=== PATIENT | female | born 1950 | race Caucasian/White ===

== ENCOUNTER → 2018-01-25 11:23 | Outpatient (CLI) | payer MEDICARE, OTHER, SELFPAY ==
--- NOTE | 2018-01-25 | DI.MG.S_ITS ---
BILATERAL DIGITAL SCREENING MAMMOGRAM 3D/2D WITH CAD: 01/25/2018 CLINICAL: Routine screening. Family history of breast cancer. Comparison is made to exams dated: 01/15/2017 mammogram, 12/24/2015 mammogram, and 10/09/2014 mammogram - [facility]. The tissue of both breasts is heterogeneously dense. This may lower the sensitivity of mammography. Current study was also evaluated with a Computer Aided Detection (CAD) system. There are benign calcifications in the left breast. There also is a biopsy clip in the left breast. No significant masses, calcifications, or other findings are seen in either breast. There has been no significant interval change. IMPRESSION: BENIGN There is no mammographic evidence of malignancy. A 1 year screening mammogram is recommended. This exam was interpreted at Station ID: [id number]. NOTE: For mammograms, a report in lay terms will be sent to the patient. Approximately 15% of breast malignancies will not be visualized mammographically. In the management of a palpable breast mass, a negative mammogram must not discourage biopsy of a clinically suspicious lesion. Electronically Signed By: Marcus clark/karoline:01/25/2018 13:10:55 letter sent: Normal Exam ACR BI-RADS Category 2: Benign Finding(s) 3342F
== END ==
PROVIDERS: Family Provider Family Medicine; PCP Family Medicine; Visit Provider Family Medicine
DX: Z12.31 Encounter for screening mammogram for malignant neoplasm of breast (principal); Z80.3 Family history of malignant neoplasm of breast
CPT/HCPCS: 77063; 77067

== ENCOUNTER → 2018-06-24 13:12 | Outpatient (CLI) | payer MEDICARE, OTHER, SELFPAY ==
--- NOTE | 2018-06-24 | DI.US.S_ITS ---
PROCEDURE: US THYROID INDICATIONS: OSTEOPENIA THYROID NODULE TECHNIQUE: Real-time scanning was performed of the thyroid gland, with image documentation. COMPARISON: [facility], [place], THYROID, 03/15/2016, 11:07. [facility], [place], THYROID, 10/09/2014, 8:41. FINDINGS: Right: Right thyroid lobe is mildly asymmetrically larger than the left, measuring 1.2 x 1.5 x 4.2 cm and contains 3 separate nodules within the central portion of the thyroid lobe and a fourth nodule at its junction with the isthmus. These measure respectively 1.9 x 1.2 x 0.7 cm at the inferior third of the gland and 7 x 7 x 4 mm at the middle third of the gland. More superiorly in the nodule measures 7 x 7 x 5 mm, and at the isthmus margin the nodule measures 5 x 4 x 3 mm. These have not significantly changed in size. Left: No thyroid nodules. Normal-sized gland at 0.6 x 0.9 x 2.6 cm Isthmus: 3 mm. IMPRESSION: The right thyroid lobe contains 4 separate nodules, as discussed above, the largest of which is located at the lower third of the gland and measures 1.9 x 1.2 x 0.7 cm. Considering slight differences in angulation the size of the 3 nodules have not significantly changed within the central portion of the right thyroid lobe. The isthmus nodule, measuring 3 x 4 x 5 mm, is newly visualized. Dictated by: Carlos Garcia M.D. on 06/24/2018 at 16:18 Approved by: Carlos Garcia M.D. on 06/24/2018 at 16:22
== END ==
PROVIDERS: Family Provider Family Medicine; PCP Family Medicine; Visit Provider Family Medicine
DX: E04.2 Nontoxic multinodular goiter (principal); M81.0 Age-related osteoporosis without current pathological fracture; Z78.0 Asymptomatic menopausal state; Z82.62 Family history of osteoporosis
CPT/HCPCS: 76536; 77080

== ENCOUNTER → 2019-05-20 11:00 | Outpatient (CLI) | payer MEDICARE, OTHER, SELFPAY ==
--- NOTE | 2019-05-20 | DI.MG.S_ITS ---
BILATERAL DIGITAL SCREENING MAMMOGRAM 3D/2D WITH CAD: 05/20/2019 CLINICAL: Routine screening. Family history of breast cancer. Comparison is made to exams dated: 01/25/2018 mammogram, 01/15/2017 mammogram, and 12/24/2015 mammogram - . The tissue of both breasts is heterogeneously dense. This may lower the sensitivity of mammography. Current study was also evaluated with a Computer Aided Detection (CAD) system. There are benign calcifications in the left breast. There also is a biopsy clip in the left breast. No significant masses, calcifications, or other findings are seen in either breast. There has been no significant interval change. IMPRESSION: There is no mammographic evidence of malignancy. A 1 year screening mammogram is recommended. This exam was interpreted at Station ID: [id number]. NOTE: For mammograms, a report in lay terms will be sent to the patient. Approximately 15% of breast malignancies will not be visualized mammographically. In the management of a palpable breast mass, a negative mammogram must not discourage biopsy of a clinically suspicious lesion. Electronically Signed By: Nnamdi virgen/karoline:05/20/2019 14:40:38 letter sent: Normal Exam ACR BI-RADS Category 2: Benign Finding(s) 3342F
== END ==
PROVIDERS: PCP Family Medicine; Visit Provider Family Medicine
DX: Z12.31 Encounter for screening mammogram for malignant neoplasm of breast (principal); Z80.3 Family history of malignant neoplasm of breast
CPT/HCPCS: 77063; 77067

== ENCOUNTER → 2020-01-12 12:47 | Outpatient (CLI) | payer MEDICARE, OTHER, SELFPAY ==
--- NOTE | 2020-01-12 12:49 | DI.US.S_ITS ---
PROCEDURE: US THYROID INDICATIONS: THYROID NODULE,HYPOTHYRIODISM TECHNIQUE: Real-time scanning was performed of the thyroid gland, with image documentation. COMPARISON: [facility], US, US THYROID, 06/24/2018, 14:02. FINDINGS: Right: Thyroid lobe measures 4.5 x 1.8 x 1.7 cm, and is homogeneous in echotexture. Left: Thyroid lobe measures 2.4 x 0.9 x 0.9 cm, and is homogenous in echotexture. Isthmus: 2 mm thick. Nodule number: 1 Location: Right inferior Size: 2 x 1.3 x 0.9 cm, unchanged Composition: Solid Echogenicity: Hypoechoic Shape: wider than tall. Margins: Smooth Echogenic foci: None Total points: 4 ACR TI-RADS category: TR 4, moderately suspicious Nodule number: 2 Location: Right mid Size: 0.7 x 0.5 x 0.4 cm, unchanged Composition: Cystic Echogenicity: Hypoechoic Shape: wider than tall. Margins: Smooth Echogenic foci: None Total points: 2 ACR TI-RADS category: Not suspicious Nodule number: 3 Location: Right superior Size: 0.9 x 0.7 x 0.6 cm, not significantly changed Composition: Predominantly cystic Echogenicity: Isoechoic Shape: wider than tall. Margins: Smooth Echogenic foci: None Total points: 1 ACR TI-RADS category: Not suspicious Nodule number: 4 Location: Right isthmus Size: 0.7 x 0.6 x 0.4 cm, not significantly changed. Composition: Predominantly solid Echogenicity: Isoechoic Shape: wider than tall. Margins: Smooth Echogenic foci: Punctate Total points: 6 ACR TI-RADS category: 2 are 4, moderately suspicious IMPRESSION: Right inferior thyroid nodule measuring 2 cm, TR 4, moderately suspicious. -FNA should be considered if not yet performed. ACR TI-RADS definitions and recommendations: TI-RADS 1 (benign): 0 points. FNA not needed. TI-RADS 2 (not suspicious): 2 points. FNA not needed. TI-RADS 3 (mildly suspicious): 3 points. * FNA if 2.5 cm or larger, follow up if 1.5 cm or larger (at 1, 3, and 5 years). TI-RADS 4 (moderately suspicious): 4-6 points. * FNA if 1.5 cm or larger, follow up if 1 cm or larger (at 1, 2, 3, and 5 years). TI-RADS 5 (highly suspicious): 7 points or more. * FNA if 1 cm or larger, follow up if 0.5 cm or larger (every year for 5 years). Dictated by: Carlos Ashton M.D. on 01/12/2020 at 14:05 Approved by: Carlos Ashton M.D. on 01/12/2020 at 14:13
== END ==
PROVIDERS: PCP Family Medicine; Referring Provider Family Medicine; Visit Provider Family Medicine
DX: E04.2 Nontoxic multinodular goiter (principal); E03.9 Hypothyroidism, unspecified
CPT/HCPCS: 76536

== ENCOUNTER → 2020-01-28 12:39 | Outpatient (CLI) | payer MEDICARE, OTHER, SELFPAY ==
--- NOTE | 2020-01-28 | DI.US.S_ITS ---
PROCEDURE: US FINE NEEDLE ASPIRATION INDICATIONS: RT NODULE TECHNIQUE: The indications, alternatives, benefits, risks, and complications of the procedure were explained to the patient. Written informed consent was obtained and placed in the chart. The area of interest was examined sonographically and a site was chosen for ultrasound guided percutaneous sampling. The skin was prepared and draped in the usual fashion, and anesthetized with 1% lidocaine infiltrated from the skin down to the lesion. Multiple passes were then performed, with contents emptied into an appropriate pathology specimen container. A bandage was applied to the area of access at completion of the study. COMPARISON: None. FINDINGS: Location(s) of lesion(s) sampled: Right thyroid lobe [place]: 25 gauge hypodermic needles. Number of passes: 6 Medications: 1% lidocaine for local anaesthesia. Complications: None. IMPRESSION: Successful ultrasound-guided right thyroid nodule fine needle aspiration, with cytology results pending. Dictated by: Carlos Garcia M.D. on 01/28/2020 at 15:26 Approved by: Carlos Garcia M.D. on 01/28/2020 at 15:27
--- NOTE | 2020-01-28 | PATH_ITS ---
Note [facility] Accession Number: [id number] TESTS RESULT FLAG UNITS REF RANGE LAB Clinician Provided Cytology Information No. of containers..02 Previously Prepared Cytology Slide 35 Unknown Storage/container code(s) 01 RIGHT INFERIOR THYROID DIAGNOSIS: 01 RIGHT INFERIOR THYROID NEGATIVE FOR MALIGNANT CELLS. ASPIRATE COMPOSED OF GROUPS OF FOLLICULAR CELLS AND COLLOID. FINDINGS FAVOR BENIGN THYROID (GOITROUS NODULE), BETHESDA CATEGORY II. SEE COMMENT. COMMENT: The specimen shows adequate cellularity with benign follicular epithelial cells arranged in macro and micro-follicles in a background of colloid. The follicular epithelial cells have a round to ovoid nucleus with minimal cytological atypia and minimal overlapping. Features of papillary thyroid carcinoma not identified. Findings favor benign thyroid (goiterous) nodule (Gomer category II). The cytologic interpretation incorporates the Gomer system for reporting thyroid cytopathology. Close clinical follow-up and repeat FNA should be considered if there is significant growth or to address new sonographic abnormalities. Pathologist ICD10: 01 E04.1 01 Right: Thyroid lobe measures 4.5 x 1.8 x 1.7 cm, and is homogeneous in echotexture. Left: Thyroid lobe measures 2.4 x 0.9 x 0.9 cm, and is homogenous in echotexture. Isthmus: 2 mm thick. Nodule number: 1 Location: Right inferior Size: 2 x 1.3 x 0.9 cm, unchanged Composition: Solid Echogenicity: Hypoechoic Shape: wider than tall. Margins: Smooth Echogenic foci: None Total points: 4 ACR T I-RADS category: TR 4, moderately suspicious Nodule number: 2 Location: Right mid Size: 0.7 x 0.5 x 0.4 cm, unchanged Composition: Cystic Echogenicity: Hypoechoic Shape: wider than tall. Margins: Smooth Echogenic foci: None Total points: 2 ACR T I-RADS category: Not suspicious Nodule number: 3 Location: Right superior Size: 0.9 x 0.7 x 0.6 cm, not significantly changed Composition: Predominantly cystic Echogenicity: Isoechoic Shape: wider than tall. Margins: Smooth Echogenic foci: None Total points: 1 ACR T I-RADS category: Not suspicious Nodule number: 4 Location: Right isthmus Size: 0.7 x 0.6 x 0.4 cm, not significantly changed. Composition: Predominantly solid Echogenicity: Isoechoic Shape: wider than tall. Margins: Smooth Echogenic foci: Punctate Total points: 6 ACR T I-RADS category: 2 are 4, moderately suspicious IMPRESSION: Right inferior thyroid nodule measuring 2 cm, TR 4, moderately suspicious. -FNA should be considered if not yet performed. 01 Cyndi Romero MD, Pathologist NPI- [id number] Stephen Johnson, Slitter Scorer Cut Off Operator ([facility]) 01 30 CC, PINK, CLEAR RECIEVED: IN CYTOLYT WITH 6 ALCOHOL FIXED AND 6 QUICK STAINED SLIDES ALSO 1 RNA VIAL WAS RECEIVED FOR FURTHER TESTING. /[facility] 01/29/2020 0932 Local FLAG LEGEND: L-Low Normal,H-High Normal,LL-Alert Low,HH-Alert High <-Panic Low,>-Panic High,A-Abnormal,AA-Critical Abnormal Performed at: 01 =Z [facility] [address], [place] [address] Nnamdi Mullen MD, Performed at: 01 [facility] [address], [place], [place] [id number] MD Nnamdi Mullen MD Phone: [phone]
== END ==
PROVIDERS: PCP Family Medicine; Referring Provider Family Medicine; Visit Provider Family Medicine
DX: E04.2 Nontoxic multinodular goiter (principal)
CPT/HCPCS: 10005

== ENCOUNTER → 2020-08-05 09:03 | Outpatient (CLI) | payer MEDICARE, OTHER, SELFPAY ==
[2020-08-05] MEDS: COVID-19 VACC, Ad26(JANSSEN)/PF 0.5 ML IM (09:08)
== END ==
PROVIDERS: PCP Family Medicine; Visit Provider Internal Medicine
DX: Z23 Encounter for immunization (principal)
CPT/HCPCS: 0031A; 91303

== ENCOUNTER → 2020-08-09 13:57 | Outpatient (CLI) | payer MEDICARE, OTHER, SELFPAY ==
--- NOTE | 2020-08-09 | DI.RAD.S_ITS ---
PROCEDURE: XR KNEE LT 3V INDICATIONS: LEFT KNEE PAIN TECHNIQUE: 3 views of the knee were acquired. COMPARISON: None. FINDINGS: Bones: No fractures or dislocations. No suspicious bony lesions. Joint spaces grossly preserved Soft tissues: No joint effusion. No suspicious soft tissue calcifications. IMPRESSION: Negative examination. If the patient's pain or other symptoms persist, consider further evaluation with MRI Dictated by: Nicholas Jama M.D. on 08/09/2020 at 16:18 Approved by: Nicholas Jama M.D. on 08/09/2020 at 16:19
== END ==
PROVIDERS: PCP Family Medicine; Referring Provider Family Medicine; Visit Provider Family Medicine
DX: M25.562 Pain in left knee (principal)
CPT/HCPCS: 73562

== ENCOUNTER → 2020-08-16 13:02 | Outpatient (CLI) | payer MEDICARE, OTHER, SELFPAY | PROVIDERS: PCP Family Medicine; Referring Provider Family Medicine; Visit Provider Family Medicine | DX: M85.88 Other specified disorders of bone density and structure, other site (principal); Z78.0 Asymptomatic menopausal state; E07.9 Disorder of thyroid, unspecified; Z82.62 Family history of osteoporosis | CPT/HCPCS: 77080 ==

== ENCOUNTER → 2020-10-08 10:26 | Outpatient (CLI) | payer MEDICARE, OTHER, SELFPAY ==
--- NOTE | 2020-10-08 | DI.MG.S_ITS ---
BILATERAL DIGITAL SCREENING MAMMOGRAM 3D/2D WITH CAD: 10/08/2020 CLINICAL: Routine screening. Family history of breast cancer. Comparison is made to exams dated: 05/20/2019 mammogram, 01/25/2018 mammogram, and 01/15/2017 mammogram - [facility]. The tissue of both breasts is heterogeneously dense. This may lower the sensitivity of mammography. Current study was also evaluated with a Computer Aided Detection (CAD) system. There are benign calcifications in both breasts. There also is a biopsy clip in the left breast. There are mole markers on both breasts. No significant masses, calcifications, or other findings are seen in either breast. There has been no significant interval change. IMPRESSION: BENIGN There is no mammographic evidence of malignancy. A 1 year screening mammogram is recommended. This exam was interpreted at Station ID: [id number]. NOTE: For mammograms, a report in lay terms will be sent to the patient. Approximately 15% of breast malignancies will not be visualized mammographically. In the management of a palpable breast mass, a negative mammogram must not discourage biopsy of a clinically suspicious lesion. Electronically Signed By: Donell Blake acr/penrad:10/08/2020 11:13:45 letter sent: Normal Exam ACR BI-RADS Category 2: Benign Finding(s) 3342F
== END ==
PROVIDERS: PCP Family Medicine; Referring Provider Family Medicine; Visit Provider Family Medicine
DX: Z12.31 Encounter for screening mammogram for malignant neoplasm of breast (principal); Z80.3 Family history of malignant neoplasm of breast
CPT/HCPCS: 77063; 77067

== ENCOUNTER → 2020-12-30 09:59 | Outpatient (CLI) | payer MEDICARE, OTHER, SELFPAY ==
[2020-12-30 10:51] LABS: COVID19 -Nasal RAPID Negative (Negative)
== END ==
PROVIDERS: PCP Family Medicine; Visit Provider Specialist
DX: Z20.822 Contact with and (suspected) exposure to COVID-19 (principal)
CPT/HCPCS: 87635; C9803

== ENCOUNTER 2020-12-31 06:42 | Day surgery (SDC) | payer MEDICARE, OTHER, SELFPAY ==
[2020-12-31 07:25] VITALS: BP 141/75; PULSE 74; RESP 14; TEMP 36.7; O2SAT 98; BMI 26.1
[2020-12-31] MEDS: LACTATED RINGERS 1,000 ML 42 ML IV (07:36)
--- NOTE | 2020-12-31 07:46 | P.HP_ITS ---
History of Present Illness History of Present Illness [place] [facility] [place] The patient is a woman here for screening colonoscopy. She is in a high risk group as she has to immediate family members who have had colon cancer. She had a polyp removed 6 years ago at her last scope. Patient History Medical History Anxiety Arthritis Cholecystectomy planned Depression Diverticulosis Eczema Fibromyalgia Heartburn High cholesterol Hypertension Hypothyroid Neuroma of foot Skin cancer UTI (urinary tract infection) Family & Social History Family History (Updated 12/31/20 @ 07:47 by Korey Noonan MD) Father Cancer Brother Cancer Social History: household members spouse Tobacco & Substance use: Smoking Status Never smoker alcohol intake current alcohol intake frequency a few times a month Substance Use Type does not use Meds Home Medications and Allergies Home Medications Medication Instructions Recorded Confirmed Type calcium carbonate 600 mg calcium 1,200 mg PO DAILY tab 10/02/17 12/31/20 History (1,500 mg) tablet (Calcium) celecoxib 200 mg capsule 200 mg PO DAILY 10/02/17 12/31/20 History cholecalciferol (vitamin D3) 100 4,000 unit PO DAILY 10/02/17 12/31/20 History mcg (4,000 unit) capsule fluoxetine 40 mg capsule 40 mg PO DAILY cap 10/02/17 12/31/20 History gabapentin 300 mg capsule 300 mg PO BEDTIME 10/02/17 12/31/20 History levothyroxine 50 mcg capsule 50 mcg PO DAILY 10/02/17 12/31/20 History magnesium sulfate 100 mg capsule 400 mg PO DAILY cap 10/02/17 12/31/20 History clonidine HCl 0.1 mg tablet 0.1 mg PO BEDTIME 12/31/20 12/31/20 History red yeast rice 600 mg capsule 600 mg PO DAILY 12/31/20 12/31/20 History sumatriptan succinate 100 mg tablet 100 mg PO PRN PRN 12/31/20 12/31/20 History triamcinolone acetonide 0.1 % 1 applic TOPICAL PRN PRN 12/31/20 12/31/20 History topical cream Allergies Allergy/AdvReac Type Severity Reaction Status Date / Time bupropion [From Wellbutrin] Allergy Severe Thought Verified 01/09/19 10:35 She Had a Stroke crab Allergy Mild Swelling/It Verified 01/09/19 10:35 ch paroxetine [From Paxil] Allergy Verified 12/31/20 07:12 tetracycline Allergy ITCHING Verified 12/31/20 07:12 Sulfa (Sulfonamide AdvReac Mild Swelling/It Verified 01/09/19 10:35 Antibiotics) ch Review of Systems Review of Systems Narrative: Has an intermittent cough at times. No chest pain or heart problems. Has various abdominal pains. No seizures or blackouts. Exam Vital Signs (past 8 hours): - 12/31/20 07:25 Temperature 98.0 F Pulse Rate 74 Respiratory Rate 14 Blood Pressure 141/75 H Pulse Oximetry 98 Oxygen Delivery Method Room Air Oxygen Flow Rate 0 Narrative Exam Narrative: Pleasant cooperative patient no apparent distress. Lungs are clear to auscultation. No rales or rhonchi. Heart regular rate and rhythm no murmur gallop. Abdomen is soft nontender without mass. No obvious hernias. Patient is alert and oriented x3. Assessment & Plan Assessment and plan (1) Screening for colon cancer: Status: Acute Assessment & Plan narrative: The patient for a screening colonoscopy. I have discussed the procedure with them. Risks of bleeding, perforation which would necessitate major operation, failure to find remove all lesions, the potential tattoo were all discussed. All questions were answered. They wished to proceed.
--- NOTE | 2020-12-31 07:49 | PM.PREOP ---
Pre-operative Note COVID-19 COVID-19 status: Negative Result date/Date tested (Pos, Neg/Pending): 12/30/20 Interval Note History & Physical reviewed/Exam performed by Physician: Yes Changes to H&P: No ASA Class (for procedural sedation): II
[2020-12-31] MEDS: MIDAZOLAM 5 MG/5 ML VIAL IV (08:06)
[2020-12-31] MEDS: fentaNYL 250 MCG/5 ML INJ IV (08:06)
--- NOTE | 2020-12-31 08:20 | PM.OP.ENDO ---
Operative Date/Time/Diagnoses Date of procedure: 12/31/20 Time of procedure: 08:20 Pre-op diagnosis: Family history of colon cancer. Last colonoscopy 6 years ago. Post-op diagnosis: same Procedure & Clinicians Study performed: Colonoscopy Same procedure as scheduled: Yes Indications: Screening in high risk group Surgeon: Korey Noonan Procedure Notes SCOAP/Timeout: Performed Procedure in detail: The patient was placed in the left lateral decubitus position and underwent IV sedation directed by the surgeon consisting of fentanyl and Versed. Digital exam was unremarkable. The scope was inserted and advanced through the rectum into the sigmoid, descending, transverse, and ascending colon. Sigmoid diverticulosis was noted.. The cecum was reached identified by the ileocecal valve and the appendiceal opening. The scope was gradually brought out. No Polyps were found. The scope ultimately was retroflexed in the rectum. The appearance was normal. The scope was removed and the patient tolerated the procedure well. Prep was good. Scope withdrawal time: 7 minutes Sedation minutes: 19 Findings: diverticulosis (Sigmoid colon) Specimen(s): none sent Complications: none Post-procedure Recommendations: Colonscopy in 5 years Follow up: as needed Disposition: PACU
[2020-12-31 08:22] VITALS: BP 123/65; PULSE 70; RESP 16; TEMP 36.2; O2SAT 95
[2020-12-31 08:27] VITALS: BP 126/74; PULSE 70; RESP 16; O2SAT 95
[2020-12-31 08:32] VITALS: BP 127/70; PULSE 66; PULSE 68; RESP 16; O2SAT 96; O2SAT 97
[2020-12-31 08:41] VITALS: BP 122/70; PULSE 65; RESP 16; TEMP 36.4; O2SAT 96
== END 2020-12-31 08:47 | disposition home or self-care (01) ==
PROVIDERS: PCP Family Medicine; Referring Provider Specialist; Visit Provider Specialist
PROC: 0DJD8ZZ Inspection of Lower Intestinal Tract, Via Natural or Artificial Opening Endoscopic (ICD-10-PCS; CPT 45378; principal; 2020-12-31 07:45)
DX: Z12.11 Encounter for screening for malignant neoplasm of colon (principal); Z80.0 Family history of malignant neoplasm of digestive organs; K57.30 Diverticulosis of large intestine without perforation or abscess without bleeding
CPT/HCPCS: G0105; 99152; J2250; J3010

== ENCOUNTER → 2021-04-01 10:45 | Outpatient (CLI) | payer MEDICARE, OTHER, SELFPAY ==
[2021-04-01] MEDS: COVID-19 VACC #3, MRNA(MOD) 50 MCG/0.25 ML VIAL IM (10:54)
== END ==
PROVIDERS: PCP Family Medicine; Visit Provider Internal Medicine
DX: Z23 Encounter for immunization (principal)
CPT/HCPCS: 0013A; 91301

== ENCOUNTER → 2021-10-18 14:41 | Outpatient (CLI) | payer MEDICARE, OTHER, SELFPAY ==
--- NOTE | 2021-10-18 | DI.MG.S_ITS ---
BILATERAL DIGITAL SCREENING MAMMOGRAM 3D/2D WITH CAD: 10/18/2021 CLINICAL: Routine screening. Family history of breast cancer. Comparison is made to exams dated: 10/08/2020 mammogram, 05/20/2019 mammogram, and 01/25/2018 mammogram - [facility]. The tissue of both breasts is heterogeneously dense. This may lower the sensitivity of mammography. Current study was also evaluated with a Computer Aided Detection (CAD) system. There are benign calcifications in both breasts. There also is a biopsy clip in the left breast. There are mole markers on both breasts. No significant masses, calcifications, or other findings are seen in either breast. There has been no significant interval change. IMPRESSION: BENIGN There is no mammographic evidence of malignancy. A 1 year screening mammogram is recommended. This exam was interpreted at Station ID: [id number]. NOTE: For mammograms, a report in lay terms will be sent to the patient. Approximately 15% of breast malignancies will not be visualized mammographically. In the management of a palpable breast mass, a negative mammogram must not discourage biopsy of a clinically suspicious lesion. Electronically Signed By: Silva sanchez/karoline:10/18/2021 15:44:13 letter sent: Normal Exam ACR BI-RADS Category 2: Benign Finding(s) 3342F
== END ==
PROVIDERS: PCP Family Medicine; Referring Provider Family Medicine; Visit Provider Family Medicine
DX: Z12.31 Encounter for screening mammogram for malignant neoplasm of breast (principal); Z80.3 Family history of malignant neoplasm of breast
CPT/HCPCS: 77063; 77067

== ENCOUNTER → 2022-04-24 10:15 | Outpatient (CLI) | payer MEDICARE, OTHER, SELFPAY ==
[2022-04-24 12:08] LABS: Add Manual Diff / Slide Review NO; Basophils Absolute Auto 0 /uL (0-100); Basophils Percent Auto 0.4 % (0-2); Eosinophils Absolute Auto 300 /uL (0-450); Eosinophils Percent Auto 3.3 % (2-4); Hematocrit 42.8 % (36-46); Hemoglobin 14.4 g/dL (12.0-16.0); Lymphocytes Absolute Auto 2700 /uL (1100-4500); Lymphocytes Percent Auto 32.4 % (25-40); Mean Corpuscular HGB Conc 33.7 % (30-36); Mean Corpuscular Hemoglobin 29.7 PG (26-34); Mean Corpuscular Volume 88.3 fL (80-100); Monocytes Absolute Auto 700 /uL (0-900); Monocytes Percent Auto 8.8 % (3-14); Neutrophils Absolute Auto 4500 /uL (1500-7000); Neutrophils Percent Auto 55.1 % (50-75); Platelet Count 182 X10^3/uL (150-400); Red Blood Cell Count 4.85 X10^6/uL (4.0-5.2); Red Cell Distribution Width 13.3 % (11.6-14.8); White Blood Cell Count 8.2 X10^3/uL (4.5-11.0)
[2022-04-24 12:40] LABS: Alanine Aminotransferase 67 IU/L (<35); Albumin 4.5 g/dL (3.5-5.0); Albumin Globulin Ratio 1.8 (1.0-2.8); Alkaline Phosphatase 64 U/L (38-126); Aspartate Aminotransferase 55 IU/L (14-36); BUN Creatinine Ratio 19.4 (6-22); Bilirubin Total 0.5 mg/dL (0.2-1.3); Blood Urea Nitrogen 14 mg/dL (7-17); Calcium 9.4 mg/dL (8.4-10.2); Carbon Dioxide 28 mmol/L (22-32); Chloride 100 mmol/L (98-107); Estimated Glomerular Filt Rate > 60 mL/min (>60); Globulin 2.5 g/dL (1.7-4.1); Glucose 94 mg/dL (80-110); HEMOLYSIS < 15 (0-50); Potassium 3.9 mmol/L (3.4-5.1); Sodium 139 mmol/L (137-145)
[2022-04-24 12:51] LABS: LDL Cholesterol Direct 132 mg/dL (<100)
[2022-04-24 12:54] LABS: Free T3, Triiodothyronine Free 2.82 pg/mL (2.77-5.27); Free T4, Direct Thyroxine 0.99 ng/dL (0.78-2.19)
[2022-04-24 13:07] LABS: Thyroid Stimulating Hormone 1.99 uIU/mL (0.47-4.68)
== END ==
PROVIDERS: PCP Family Medicine; Referring Provider Family Medicine; Visit Provider Family Medicine
DX: R03.0 Elevated blood-pressure reading, without diagnosis of hypertension (principal); M81.0 Age-related osteoporosis without current pathological fracture; E78.1 Pure hyperglyceridemia; E03.9 Hypothyroidism, unspecified
CPT/HCPCS: 36415; 80053; 83721; 84439; 84443; 84481; 85025

== ENCOUNTER → 2022-12-01 12:44 | Outpatient (CLI) | payer MEDICARE, OTHER, SELFPAY ==
--- NOTE | 2022-12-01 | DI.MG.S_ITS ---
BILATERAL DIGITAL SCREENING MAMMOGRAM 3D/2D WITH CAD: 12/01/2022 CLINICAL: Routine screening. Family history of breast cancer. Comparison is made to exams dated: 10/18/2021 mammogram, 10/08/2020 mammogram, 05/20/2019 mammogram, and 01/25/2018 mammogram - [facility]. Both breasts are heterogeneously dense, which may obscure small masses (category c / 51-75% glandular tissue). Current study was also evaluated with a Computer Aided Detection (CAD) system. There are benign calcifications in both breasts. There also is a biopsy clip in the left breast. There are mole markers on both breasts. No significant masses, calcifications, or other findings are seen in either breast. There has been no significant interval change. IMPRESSION: BENIGN There is no mammographic evidence of malignancy. A 1 year screening mammogram is recommended. Based on the Tyrer Cuzick model (a risk assessment model) the patient's lifetime risk is 9.1% and her 10 year risk is 7.5%. According to the ACR, ACS, and NCCN guidelines, an annual breast MRI exam along with mammogram is recommended if the patient's lifetime risk is 20% or greater. This exam was interpreted at Station ID: [id number]. NOTE: For mammograms, a report in lay terms will be sent to the patient. Approximately 15% of breast malignancies will not be visualized mammographically. In the management of a palpable breast mass, a negative mammogram must not discourage biopsy of a clinically suspicious lesion. Electronically Signed By: Carlos card/karoline:12/01/2022 13:33:20 letter sent: Normal Exam ACR BI-RADS Category 2: Benign Finding(s) 3342F
== END ==
PROVIDERS: PCP Family Medicine; Referring Provider Family Medicine; Visit Provider Family Medicine
DX: Z12.31 Encounter for screening mammogram for malignant neoplasm of breast (principal); Z80.3 Family history of malignant neoplasm of breast
CPT/HCPCS: 77063; 77067

== ENCOUNTER → 2022-12-05 09:50 | Outpatient (CLI) | payer MEDICARE, OTHER, SELFPAY ==
--- NOTE | 2022-12-05 | DI.RAD.S_ITS ---
PROCEDURE: XR CHEST 2V INDICATIONS: Chest pain, unspecified TECHNIQUE: 2 views of the chest were acquired. COMPARISON: [facility], , CHEST 2 VIEW, 10/05/2006, 10:40. FINDINGS: Surgical changes and devices: None. Lungs and pleura: Lungs are clear. No pleural effusions or pneumothorax. Mediastinum: Mediastinal contours are normal. Heart size is normal. Bones and chest wall: No suspicious bony abnormalities. Degenerative changes of the thoracic spine. Decreased osseous mineralization. Soft tissues appear unremarkable. IMPRESSION: Acute cardiopulmonary process. Dictated by: Leighton Fink M.D. on 12/05/2022 at 14:09 Approved by: Leighton Fink M.D. on 12/05/2022 at 14:10
== END ==
PROVIDERS: PCP Family Medicine; Referring Provider Family Medicine; Visit Provider Family Medicine
DX: R07.9 Chest pain, unspecified (principal); R42 Dizziness and giddiness; R55 Syncope and collapse
CPT/HCPCS: 71046

== ENCOUNTER → 2022-12-11 12:47 | Outpatient (CLI) | payer MEDICARE, OTHER, SELFPAY ==
--- NOTE | 2022-12-11 13:04 | DI.DEXA.S_ITS ---
Bone Density Report Name: EITAN PHAN Age: 72 Sex: Female Ethnicity: White Date of : 1950 Indication: osteopenia; Referring Provider: ESAU HARRIS MD Study: Bone densitometry was performed. Exam Date: December 11, 2022 Accession number: [id number] Bone Density: Region BMD T-score Z-score Classification AP Spine(L1-L4) 0.719 -3.0 -0.7 Osteoporosis Femoral Neck (Left) 0.568 -2.5 -0.5 Osteoporosis Total Hip (Left) 0.790 -1.2 0.5 Osteopenia Femoral Neck (Right) 0.590 -2.3 -0.3 Osteopenia Total Hip (Right) 0.750 -1.6 0.1 Osteopenia Total Hip Mean 0.770 -1.4 0.3 Osteopenia World Health Organization criteria for BMD impression classify patients as: Normal (T-score at or above -1.0), Osteopenia (T-score between -1.0 and -2.5), or Osteoporosis (T-score at or below -2.5). 10-year Fracture Risk: FRAX not reported because: Some T-score for Spine Total or Hip Total or Femoral Neck at or below -2.5 Previous Exams: -- Region Exam Age BMD T-score BMD Change BMD Change Date g/cm2 vs Baseline vs Previous -- AP Spine (L1-L4) 12/11/2022 72 0.719 -3.0 -0.062 (-7.9%)# -0.062 (-7.9%)# 08/16/2020 70 0.782 -2.4 Total Hip(Left) 12/11/2022 72 0.790 -1.2 0.012 (1.5%)# 0.012 (1.5%)# 08/16/2020 70 0.778 -1.3 Total Hip(Right) 12/11/2022 72 0.750 -1.6 -0.018 (-2.4%)# -0.018 (-2.4%)# 08/16/2020 70 0.768 -1.4 -- *Denotes significance at 95% confidence level, LSC for AP Spine = 0.022 g/cm2, LSC for Total Hip = 0.027 g/cm2 # Denotes dissimilar scan types or analysis methods Impression: The patient has osteoporosis, based on the Total Spine T-score. No significant bone loss was observed. Discussion: INCREASED RISK OF FRACTURE. BONE DENSITY IS UNDESIRABLY LOW AT ONE OR MORE SKELETAL SITES, CONSISTENT WITH POSTMENOPAUSAL OSTEOPOROSIS. This patient's lowest T-score meets the World Health Organization's (WHO) criteria for osteoporosis at one or more sites (T-score -2.5 or below). In untreated patients, the risk of osteoporotic fracture increases approximately two-fold for each 1.0 SD decrease in T-score. Low bone density is not the only risk factor for fracture; also consider factors such as patient's age, frailty or poor health, risk of falling, risk of injury, previous osteoporotic fracture, family history of osteoporosis, cigarette smoking, low body weight, etc. Not everyone with low bone mineral density has osteoporosis; osteomalacia and other metabolic bone disorders should also be considered. Patients who have osteoporosis should be evaluated for specific diseases and conditions (secondary causes) that may cause or contribute to bone loss. The [place] Association [employer] Clinical Endocrinologists (AACE) and National Osteoporosis Foundation (NOF) recommend pharmacologic intervention for all postmenopausal women whose T-score is in this range. The patient should follow a healthful lifestyle (good nutrition with adequate calcium and vitamin D, and appropriate weight-bearing exercise). Follow-Up: Consider a repeat BMD and Vertebral Fracture Assessment (VFA) exam in 2 years or sooner if medically necessary, to reassess this patient's status. Reported by: SONI CHERY M.D. on 12/11/2022 1:23:00 PM.
== END ==
PROVIDERS: PCP Family Medicine; Referring Provider Family Medicine; Visit Provider Family Medicine
DX: M81.0 Age-related osteoporosis without current pathological fracture (principal); Z78.0 Asymptomatic menopausal state
CPT/HCPCS: 77080

== ENCOUNTER → 2022-12-13 13:32 | Outpatient (CLI) | payer MEDICARE, OTHER, SELFPAY | PROVIDERS: PCP Family Medicine; Referring Provider Family Medicine; Visit Provider Family Medicine | DX: R07.9 Chest pain, unspecified (principal); R42 Dizziness and giddiness; R55 Syncope and collapse | CPT/HCPCS: 93005 ==

== ENCOUNTER → 2022-12-28 08:16 | Outpatient (CLI) | payer MEDICARE, OTHER, SELFPAY ==
--- NOTE | 2022-12-28 | DI.ECHO.S_ITS ---
[facility] +---------+ : : [address] : [place] : : : : [phone] : : : : Phone: [phone]---------+ Echocardiogram Report + + :Name: EITAN PHAN Study Date: 12/28/2022 Height: 64 in : :[facility] ReadingLocation: Weight: 157 lb : : Gender: Female BSA: 1.8 m2 : :: 1950 Age: 72 yrs BP: 142/95 mmHg: :Reason For Study: SYNCOPE AND COLLAPSE : :Ordering Physician: KIMBERLY, : :ESAU Performed By: Natasha Marin : :Referring: ESAU HARRIS : + + Interpretation Summary 1) Normal left ventricular thickness, size, wall motion, and systolic function (EF 55-60%). 2) Normal right ventricular size with low normal function. 3) There is mild mitral regurgitation. There is mild aortic regurgitation. 4) No prior Echo available for comparison. Procedure: A two-dimensional transthoracic echocardiogram with color flow and Doppler was performed. The study quality was technically adequate. There is no prior echocardiogram noted for this patient. The patient was in sinus rhythm with heart rates between 56-64 bpm during the exam. Left Ventricle: The left ventricle is normal in size and wall thickness. The ejection fraction is estimated to be 55-60%. Left ventricular systolic function appears normal without focal wall motion abnormalities. Diastolic parameters suggest a relaxation abnormality of the left ventricle, consistent with probable normal filling pressures. Right Ventricle: The right ventricle is normal in size, thickness and function. Right ventricular systolic function is at the lower limits of normal. Atria: The left atrium is mildly dilated. Right atrial size is normal. There is no Doppler evidence for an interatrial shunt. Mitral Valve: The mitral valve leaflets are mildly calcified. There is mild mitral regurgitation. Aortic Valve: The aortic valve is trileaflet. The aortic valve opens well. There is no aortic valve stenosis. There is mild aortic regurgitation. Tricuspid Valve: The tricuspid valve is normal in structure and function. There is mild tricuspid regurgitation. Pulmonary artery pressures cannot be estimated because of the lack of a measurable TR jet velocity. Pulmonic Valve: The pulmonic valve leaflets are thin and pliable; valve motion is normal. There is mild pulmonic regurgitation. Great Vessels: The aortic root is normal size. The dimensions of the ascending aorta are normal. The IVC is of normal diameter and collapses greater than 50% with a sniff. This suggests a low right atrial pressure of 3 mm Hg. Pericardium/ Pleura There is no pericardial effusion. There is no pleural effusion. MMode/2D Measurements & Calculations LVIDd: 4.9 cm LVOT diam: 2.1 cm LVIDs: 3.3 cm Ao root diam: 2.9 cm FS: 33.6 % asc Aorta Diam: 3.2 cm EPSS: 0.63 cm Ao Arch Diam (Prox Trans): 2.8 cm IVSd: 0.69 cm LVPWd: 0.74 cm LV li. diameter/BSA (cm/m^2): 2.8 LV sys. diameter/BSA (cm/m^2): 1.8 LA A2 area: 17.9 cm2 RA long axis: 4.6 cm LA A4 area: 16.2 cm2 RA area: 10.9 cm2 LA length (vol): 4.5 cm RA vol: 22.2 ml LA vol: 54.8 ml RA : 12.6 ml/m2 LA vol index: 31.0 ml/m2 IVC diam: 1.1 cm RVD2 (mid): 2.9 cm TAPSE: 1.6 cm Doppler Measurements & Calculations Ao V2 max: 106.3 cm/sec LVOT Max Kam: 73.3 cm/sec Ao V2 mean: 75.6 cm/sec LV V1 max P.2 mmHg Ao max P.5 mmHg LV V1 VTI: 17.8 cm Ao mean P.5 mmHg JAROCHO(I,D): 2.5 cm2 Ao V2 VTI: 23.9 cm JAROCHO(V,D): 2.3 cm2 sev ratio: 0.75 JAROCHO indexed to BSA (cm^2/m^2): 1.4 AI P1/2t: 578.7 msec AI dec slope: 229.9 cm/sec2 MV E max kam: 55.4 cm/sec PA V2 max: 63.2 cm/sec MV A max kam: 72.0 cm/sec PA V2 mean: 44.6 cm/sec MV E/A: 0.77 PA mean P.89 mmHg Med Peak E' Kam: 4.8 cm/sec PA pr(Accel): 17.3 mmHg E/E' med: 11.6 Lat Peak E' Kam: 7.0 cm/sec E/E' lat: 7.9 E/e' average: 9.8 MV dec time: 0.27 sec SV(LVOT): 60.5 ml Reading Physician:05:23 PM
--- NOTE | 2022-12-28 20:44 | DI.NM.S_ITS ---
DATE OF SERVICE: 12/28/2022 PROCEDURE: Exercise perfusion study. INDICATIONS: Syncope. RADIOPHARMACEUTICAL: 25.9 mCi technetium-99m Myoview IV was injected at stress and 12.2 mCi technetium-99m Myoview IV was injected at rest. CARDIAC STRESS: Patient underwent exercise perfusion study under the supervision of an attending staff. She walked on Joseph protocol for 5 minutes and 40 seconds, achieved maximum heart rate of 136, which was 93% of target heart rate. Normal blood pressure response. Resting blood pressure 142/78. Peak blood pressure 182/80 mmHg. Achieved 7 METs of workload. Baseline rhythm, sinus with septal T-wave inversion. During stress, no convincing ischemic changes seen. No significant arrhythmias. No anginal symptoms. EVA -3%. RAW DATA: Breast shadow seen. GATED STUDY: Stress LV ejection fraction 87 and resting LV ejection fraction 83%. No significant wall motion abnormalities. Resting end- diastolic volume 80 mL. TID ratio 0.73, which is within normal limits. Lung/heart ratio 0.45, which is upper limit of normal. MYOCARDIAL PERFUSION SCAN: Resting supine images revealed small size, mildly decreased perfusion of inferior wall as well as inferior apex. On stress supine images, there was minimally decreased perfusion of anteroapex. Stress prone images revealed normal myocardial perfusion, suggestive of tissue attenuation artifact, which resolved during stress prone images. CONCLUSION: This is a normal myocardial perfusion study with evidence of breast tissue attenuation artifact, which resolved during stress prone images. Patient has large breast shadow on raw data. Preserved LV function. No ischemic EKG changes or significant arrhythmias. Normal hemodynamic response. EVA -3%. Overall, low risk myocardial perfusion scan. Savannah Sutherland - [employer]/jeanmarie/ec doc#: [id number]/job#: [id number] dd: 12/28/2022 16:52:00 dt: 12/28/2022 20:21:00 DICTATING MD/COPIES TO: Yaw Castellanos MD COPIES MNE: AMBER;
== END ==
PROVIDERS: PCP Family Medicine; Referring Provider Family Medicine; Visit Provider Family Medicine
DX: I08.3 Combined rheumatic disorders of mitral, aortic and tricuspid valves (principal); R07.9 Chest pain, unspecified; R42 Dizziness and giddiness; R55 Syncope and collapse
CPT/HCPCS: 78452; 93017; 93306; A9502

== ENCOUNTER → 2023-01-24 09:45 | Outpatient (CLI) | payer MEDICARE, OTHER, SELFPAY | PROVIDERS: PCP Family Medicine; Referring Provider Family Medicine; Visit Provider Family Medicine | DX: R55 Syncope and collapse (principal) | CPT/HCPCS: 93246 ==

== ENCOUNTER → 2024-01-11 14:25 | Outpatient (CLI) | payer MEDICARE, OTHER, SELFPAY ==
--- NOTE | 2024-01-11 14:27 | DI.MG.S_ITS ---
BILATERAL DIGITAL SCREENING MAMMOGRAM 3D/2D WITH CAD: 01/11/2024 CLINICAL: Routine screening. Family history of breast cancer. Comparison is made to exams dated: 12/01/2022 mammogram, 10/18/2021 mammogram, and 10/08/2020 mammogram - [facility]. Both breasts are heterogeneously dense, which may obscure small masses (category c / 51-75% glandular tissue). Current study was also evaluated with a Computer Aided Detection (CAD) system. There are benign calcifications in both breasts. There also is a biopsy clip in the left breast. There are mole markers on both breasts. No significant masses, calcifications, or other findings are seen in either breast. There has been no significant interval change. IMPRESSION: BENIGN There is no mammographic evidence of malignancy. A 1 year screening mammogram is recommended. Based on the Tyrer Cuzick model (a risk assessment model) the patient's lifetime risk is 8.5% and her 10 year risk is 7.7%. According to the ACR, ACS, and NCCN guidelines, an annual breast MRI exam along with mammogram is recommended if the patient's lifetime risk is 20% or greater. This exam was interpreted at Station ID: [id number]. NOTE: For mammograms, a report in lay terms will be sent to the patient. Approximately 15% of breast malignancies will not be visualized mammographically. In the management of a palpable breast mass, a negative mammogram must not discourage biopsy of a clinically suspicious lesion. Electronically Signed By: Dennys delgadillo/karoline:01/11/2024 16:26:09 letter sent: Normal Exam ACR BI-RADS Category 2: Benign Finding(s) 3342F
== END ==
LOC: MAMMO 14:26
PROVIDERS: PCP Family Medicine; Referring Provider Family Medicine; Visit Provider Family Medicine
DX: Z12.31 Encounter for screening mammogram for malignant neoplasm of breast (principal); Z80.3 Family history of malignant neoplasm of breast; R92.333 Mammographic heterogeneous density, bilateral breasts
CPT/HCPCS: 77063; 77067

== ENCOUNTER → 2024-03-04 12:13 | Outpatient (CLI) | payer MEDICARE, OTHER, SELFPAY ==
--- NOTE | 2024-03-04 12:14 | DI.RAD.S_ITS ---
PROCEDURE: XR DEXA AXIAL SKELETON INDICATIONS: OSTEOPOROSIS,POSTMENOPAUSAL COMPARISON: [facility], SUKUMAR, XR DEXA AXIAL SKELETON, 12/11/2022, 13:04. FINDINGS: Lumbar Spine: Bone mineral density 0.7 x 4 g/cm2, T score -2.7, compared to -3.0. Left Hip: Bone mineral density 0.787 g/cm2, T score -1.3, compared to -1.2. Left Femoral Neck: Bone mineral density 0.533 g/cm2, T score -2.9, compared to -2.5. Right Hip: Bone mineral density 0.755 g/cm2, T score are-1.5, compared to -1.6. Right Femoral Neck: Bone mineral density are 0.601 g/cm2, T score -2.2, compared to -2.3. Fracture Risk Calculation (when applicable): Not applicable (T score greater or equal to -1.0 to: NORMAL) (T score from -1.1 to -2.4: OSTEOPENIA) (T score less than or equal to -2.5: OSTEOPOROSIS) IMPRESSION: Progressive osteoporosis in the left femoral neck. Osteoporosis is also present lumbar spine, mildly improved. Follow-up guidelines as follows: Osteoporosis: Consider a repeat DEXA and Vertebral Fracture Assessment (VFA) exam in 2 years or sooner if medically necessary, to reassess this patient's status. Osteopenia: Consider a repeat DEXA in 2-3 years to reassess this patient's status, or if there is a new clinical indication. Normal: Consider a repeat DEXA in 5 years or sooner, or if there is a new clinical indication. All treatment decisions require clinical judgment and consideration of individual patient factors, including patient preferences, comorbidities, previous drug use, risk factors not captured in the FRAX model (e.g., frailty, falls, vitamin D deficiency, increased bone turnover, interval significant decline in bone density ) and possible under- or over-estimation of fracture risk by FRAX. In addition, the NOF Guide recommends that FDA-approved medical therapies be considered in postmenopausal women and men age >= 50 years with a: * Hip or vertebral (clinical or morphometric) fracture * T-score of <=-2.5 at the spine or hip * Ten-year fracture probability by FRAX of >= 3% for hip fracture or >=20% for major osteoporotic fracture. People with diagnosed cases of osteoporosis or at high risk for fracture should have regular bone mineral density tests. For patients eligible for Medicare, routine testing is allowed once every 2 years. The testing frequency can be increased to one year for patients who have rapidly progressing disease, those who are receiving or discontinuing medical therapy to restore bone mass, or have additional risk factors. Dictated by: Kusum Rodriguez M.D. on 03/04/2024 at 14:48 Approved by: Kusum Rodriguez M.D. on 03/04/2024 at 14:54
== END ==
PROVIDERS: PCP Family Medicine; Referring Provider Family Medicine; Visit Provider Family Medicine
DX: M81.0 Age-related osteoporosis without current pathological fracture (principal); I10 Essential (primary) hypertension; M79.7 Fibromyalgia; E03.9 Hypothyroidism, unspecified; E78.2 Mixed hyperlipidemia; Z13.0 Encounter for screening for diseases of the blood and blood-forming organs and certain disorders involving the immune mechanism
CPT/HCPCS: 77080

== ENCOUNTER → 2025-02-11 13:01 | Outpatient (CLI) | payer MEDICARE, OTHER, SELFPAY ==
--- NOTE | 2025-02-11 13:03 | DI.MG.S_ITS ---
MM screening mammo BI: 02/11/2025. BI-RADS: 2 CLINICAL: 74-year old female for bilateral screening mammogram. Tyrer-Cuzick lifetime risk of 6.3%. Current reported family history of breast cancer: mother and sister. The patient had a prior left breast biopsy. PRIOR EXAMS 01/11/2024, 12/01/2022, 10/18/2021, 10/08/2020. MAMMOGRAPHY TECHNIQUE: 2D and 3D (tomosynthesis) digital mammographic views obtained, with additional images as needed for full coverage. Current study was also evaluated with a Computer Aided Detection (CAD) system. DENSITY C. The breasts are heterogeneously dense, which may obscure small masses. MAMMOGRAPHY FINDINGS Right: There are no suspicious masses, calcifications, or other findings in the breast. Left: Biopsy marker present on the left. There are no suspicious masses, calcifications, or other findings in the breast. IMPRESSION: * No evidence of malignancy with benign findings. RECOMMENDATIONS Bilateral * Annual screening mammography. OVERALL ASSESSMENT CATEGORY BI-RADS-2: Benign. The [employer] recommends annual screening mammography beginning at age 40 for women with average risk of breast cancer. ELECTRONICALLY SIGNED: Wendy Lowe M.D. on 02/11/2025 at 05:02:17 PM PT Interpreting Station ID: [id number]
== END ==
LOC: MAMMO 13:03
PROVIDERS: Family Provider Family Medicine; PCP Family Medicine; Referring Provider Family Medicine; Visit Provider Family Medicine
DX: Z12.31 Encounter for screening mammogram for malignant neoplasm of breast (principal); R92.333 Mammographic heterogeneous density, bilateral breasts; Z80.3 Family history of malignant neoplasm of breast
CPT/HCPCS: 77063; 77067

== ENCOUNTER → 2025-03-05 09:59 | Outpatient (CLI) | payer MEDICARE, OTHER, SELFPAY | LOC: PHYS 10:00 | PROVIDERS: Family Provider Family Medicine; PCP Family Medicine; Referring Provider Family Medicine; Visit Provider Family Medicine | DX: R20.2 Paresthesia of skin (principal); M54.12 Radiculopathy, cervical region | CPT/HCPCS: 95886; 95910 ==